=== PATIENT | male | born 1970 | race Two or more races ===

== ENCOUNTER 2017-12-29 18:46 | Emergency (ER) | payer MEDICAID ==
[~2017-12-29] VITALS: Ht 175.3 cm; Wt 105.3 kg
[2017-12-29 18:51] VITALS: BP 120/77
--- NOTE | 2017-12-29 18:55 | NUR ---
PT AMBULATES TO BED 8, REPORT GIVEN TO TREMAINE URIAS
--- NOTE | 2017-12-29 19:03 | NUR ---
47m bib with c/o 10/10 right knee pain with swelling, progressively getting worse x 1 month. Limited ROM to right knee. Patient denies any recent injury. Patient is aox4. GCS=15. RR are even and unlabored. VSS. Awaiting er md briggs. Will continue to monitor.
--- NOTE | 2017-12-29 19:09 | NUR ---
Pt report given to Tiffanie PENALOZA. Transfer of care at this time.
--- NOTE | 2017-12-29 20:32 | NUR ---
X-Ray at bedside.
--- NOTE | 2017-12-29 20:50 | NUR ---
results back and noted by ERMD AND FOR D/C.
[2017-12-29 21:00] VITALS: BP 118/80
--- NOTE | 2017-12-29 21:00 | NUR ---
Patient discharged with v/s stable. Written and verbal after care instructions given and explained BY DR. DUBOIS. Patient alert, oriented and verbalized understanding of instructions. Ambulatory with steady gait. All questions addressed prior to discharge. ID band removed. Patient advised to follow up with PMD. Rx of NAPROSYN 500 MG. given. Patient educated on indication of medication including possible reaction and side effects. Opportunity to ask questions provided and answered.
== END 2017-12-29 21:00 | disposition home or self-care (01) ==
LOC: MED 18:46
DX: M13.861 Other specified arthritis, right knee (principal); F17.210 Nicotine dependence, cigarettes, uncomplicated
CPT/HCPCS: 73560; 99284; Q0092

== ENCOUNTER 2019-09-30 10:01 | Emergency (ER) | payer MEDICAID ==
[~2019-09-30] VITALS: Ht 174 cm; Wt 110.2 kg
[2019-09-30 10:16] VITALS: BP 131/84
--- NOTE | 2019-09-30 10:21 | NUR ---
WAIT AT LOBBY. HANDED ON URINE CUP.
--- NOTE | 2019-09-30 10:37 | NUR ---
Patient ambulated to bed 5
--- NOTE | 2019-09-30 11:16 | NUR ---
Dr. Anaya is evaluating patient at bedside.
[2019-09-30] MEDS: KETOROLAC 60 MG/2 ML VIAL IM ONE (11:29)
[2019-09-30] MEDS: MORPHINE SULFATE 4 MG/ML SYR IM ONE (11:30)
--- NOTE | 2019-09-30 13:44 | NUR ---
PATIENT PRESENTS TO ED WITH AUGMENTIN, NAPROXYN, ANTIVERT . PT STATES . DENIES N/V/D; SKIN IS PINK/WARM/DRY; AAOX4 WITH EVEN AND STEADY GAIT; LUNGS CLEAR BL; HR EVEN AND REGULAR; PT DENIES ANY FEVER, CP, SOB, OR COUGH AT THIS TIME; PATIENT STATES PAIN OF 0/10 AT THIS TIME; VSS; PATIENT POSITIONED FOR COMFORT; HOB ELEVATED; BEDRAILS UP X2; BED DOWN. ER MD MADE AWARE OF PT STATUS.
== END 2019-09-30 13:08 | disposition home or self-care (01) ==
LOC: MED 10:01
DX: S13.9XXA Sprain of joints and ligaments of unspecified parts of neck, initial encounter (principal); R42 Dizziness and giddiness; H66.93 Otitis media, unspecified, bilateral; X58.XXXA Exposure to other specified factors, initial encounter; Y93.89 Activity, other specified; Y92.89 Other specified places as the place of occurrence of the external cause; Y99.8 Other external cause status
CPT/HCPCS: 96372; 99284; J1885; J2270